=== PATIENT | female | born 1955 | race Caucasian/White ===

== ENCOUNTER 2018-01-04 12:05 | Outpatient (CLI) | payer BC | END 2018-01-04 12:06 | disposition home or self-care (01) | LOC: BICMAMMO 12:05 | PROVIDERS: ATTEND Obstetrics & Gynecology | DX: Z12.31 Encounter for screening mammogram for malignant neoplasm of breast (principal); Z80.3 Family history of malignant neoplasm of breast | CPT/HCPCS: 77063; 77067 ==

== ENCOUNTER 2019-07-25 13:33 | Outpatient (CLI) | payer OTHER ==
--- NOTE | 2019-07-25 15:51 | MRI ---
MRI OF LEFT KNEE PERFORMED WITHOUT CONTRAST ENHANCEMENT: 07/25/19 HISTORY: Twisting injury to knee back in April. Persistent pain. The anterior as well as posterior cruciate ligaments are intact. The lateral meniscus has a normal shape and appearance. There is a somewhat complex tear involving th e medial meniscus. The tear has a radially oriented component through the junction of the posterior h orn and body region and extends to involve the undersurface of the body and posterior horn of the men iscus extending to the peripheral red zone with edema changes along the meniscocapsular junction. The re is also a small osteochondral defect of the medial femoral condyle with marrow edema change probab ly related to an insufficiency type fracture. The patellar articular cartilage shows some grad IV chondromalacia changes mainly involving the media l facet. There is subchondral marrow edema changes seen. Medial and lateral patellar retinaculum and quadriceps and patellar tendons are normal. IMPRESSION: 1. Complex tear involving the posterior horn and body of the medial meniscus. There is approxima tely 6 mm chondral lesion with underlying irregularity to subchondral bony plate and marrow edema karolina nges along the medial edge of the medial femoral condyle adjacent to this area compatible with an ins ufficiency type fracture. 2. 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 POS: [facility]
== END 2019-07-25 13:34 | disposition home or self-care (01) ==
LOC: SCSMRI 13:33
PROVIDERS: ATTEND Family Medicine
DX: S89.92XD Unspecified injury of left lower leg, subsequent encounter (principal); S83.232A Complex tear of medial meniscus, current injury, left knee, initial encounter; R60.0 Localized edema; M25.862 Other specified joint disorders, left knee; M22.42 Chondromalacia patellae, left knee